=== PATIENT | male | born 1990 | race African-American/Black ===

== ENCOUNTER 2022-02-15 07:51 | Emergency (ER) | payer OTHER ==
[2022-02-15 08:07] VITALS: BP 126/83
--- NOTE | 2022-02-15 08:13 | ED Physician Documentation ---
History of Present Illness - Stated complaint Stated Complaint: SORE THROAT/COUGH - Chief complaint Chief Complaint: General - History obtained from History obtained from: Patient - Additonal information Additional information: Sick since yesterday with runny nose, sore throat and nonproductive cough. No fevers or chills. No myalgias. Not short of breath. Review of Systems Constitutional: denies: Fever, Chills, Myalgias Nose: reports: Rhinorrhea / runny nose, Congestion Throat: reports: Sore throat Respiratory: reports: Cough. denies: Dyspnea PD PAST MEDICAL HISTORY - Allergies Allergies/Adverse Reactions: Allergies Allergy/AdvReac Type Severity Reaction Status Date / Time No Known Drug Allergies Allergy Verified 02/15/22 08:07 PD ED PE NORMAL - Vitals Vital signs reviewed: Yes - General General: Alert and oriented X 3, No acute distress - HEENT HEENT: Ears normal, Pharynx benign - Neck Neck: Supple, no meningeal sign, No bony TTP - Cardiac Cardiac: RRR, No murmur - Respiratory Respiratory: No respiratory distress, Clear bilaterally - Abdomen Abdomen: Non tender - Back Back: No CVA TTP, No spinal TTP - Derm Derm: Normal color, Warm and dry - Neuro Neuro: Alert and oriented X 3, Normal speech Results - Vitals Vitals: Vital Signs - 24 hr 02/15/22 08:05 Temperature 36.7 C Heart Rate 86 Respiratory 16 Rate Blood Pressure 126/83 H O2 Saturation 98 Oxygen O2 Source Room air PD MEDICAL DECISION MAKING - ED course ED course: 31-year-old gentleman with what seems like an uncomplicated viral URI and normal exam. Mostly here because he needs a work note. COVID testing offered and accepted. He declined therapeutics for his symptoms. Departure - Departure Disposition: 01 Home, Self Care Clinical Impression: Viral URI Condition: Good Record reviewed to determine appropriate education?: Yes Instructions: ED Viral Syndrome Comments: You have a Covid test pending. You need to self quarantine until the result is done and negative. Do not leave your house. Do not get near anybody. The results should be done in 48 to 72 hours. We will call with a positive result, the fastest way to get a negative result for confirmation though is to go to the hospital website at [email or web address], click on the my [facility] tab and sign up for the patient portal. If any friends or family get sick and would like to have a Covid test done, but do not have signs or symptoms that would necessitate being hospitalized, there are multiple local options for Covid testing. [facility] keeps an updated list of testing and vaccination options at: [email or web address]. Forms: Activity restrictions
== END 2022-02-15 08:17 | disposition home or self-care (01) ==
LOC: ED 07:51
DX: J06.9 Acute upper respiratory infection, unspecified (principal); Z20.822 Contact with and (suspected) exposure to COVID-19
CPT/HCPCS: 99282; 99283

== ENCOUNTER 2022-03-22 19:02 | Outpatient (CLI) | payer OTHER | END 2022-03-22 19:03 | disposition home or self-care (01) | LOC: SC 19:02 | PROVIDERS: ATTEND Nurse Practitioner Family | DX: G47.33 Obstructive sleep apnea (adult) (pediatric) (principal) | CPT/HCPCS: 95810 ==

== ENCOUNTER 2022-04-04 10:04 | Outpatient (CLI) | payer OTHER ==
[2022-04-04 10:40] VITALS: BP 124/75
--- NOTE | 2022-04-04 10:40 | SLEEP CARE CONSULTATION ---
Information from patient questionnaire entered by Bronwyn Suresh MA. I have reviewed and concur with the information entered by Bronwyn Suresh MA. This document represents the service I personally performed and the decisions made by , Rosalie Jackson ARNP. History of Present Illness Service Date and Time: 04/04/2022 1004 Initial Lindsay Sleepiness Scale score: 16 (03/14/2022) Current Lindsay Sleepiness Scale score: 15 (04/04/2022) Additional HPI information: CECILY MEHTA returns for follow up and results of the recently performed polysomnography. I explained the pathophysiology behind obstructive sleep apnea. We then spent quite a bit of time discussing different treatment options. For mild obstructive sleep apnea, surgery and oral appliance are alternatives to nasal CPAP therapy but in moderate or severe cases, nasal CPAP is the most effective and reliable treatment. Because apnea is primarily in supine position, then positional management therapy could be effective. Methods discussed such as positioning with pillows to prevent supine sleep. I reviewed the impact of weight changes on sleep apnea and strongly recommended losing weight. After some discussion, the patient opted to go with the nasal CPAP therapy. Nasal autoCPAP set at 4-15 cmH20 will be ordered with rationale explained. A manual titration study will be ordered if unable to find optimal pressure with office adjustments. I explained how CPAP machine works and what to expect when using the machine. Using CPAP every night in order to get used to it was emphasized. Patient advised to put CPAP mask on before getting into bed so as not to fall asleep without CPAP. To assist acclimation to CPAP use, it could also be used for a short time during day while reading or watching TV. The patient was instructed to call the CPAP supplier to discuss any mechanical problem that may occur. If the mask given is uncomfortable or is difficult to keep on through the night even with adjustment, contact the CPAP supplier as many will replace with ano ther mask style if notified before 30 days. If snoring or perceives is not getting enough air or too much air from the machine, notify this office. Patient counseled not drink alcohol less than 4 hours before bedtime as it can increase snoring and apnea. Patient was cautioned about risks of drowsy driving until sleepiness symptoms resolve. Patient denies drowsy driving. Sleep Study - Results Type of Sleep Study: Polysomnography (F/U POLY, 03/22/2022, POS,) Prior sleep studies: No Polysomnography/Home Sleep Study results: IMPRESSION: The quality of the study is good. The patient had normal sleep efficiency. The sleep architecture was abnormal for sleep fragmentation and reduced amount of time spent in slow wave sleep (N3). Respiratory monitoring showed mild obstructive sleep apnea-hypopnea (AHI = 9.7) associated with frequent arousals, oxyhemoglobin desaturation and mild hypoxia (tony oxygen saturation of 83%). The respiratory events occurred almost exclusively during supine sleep (supine AHI = 18.2; non-supine = 3.60). Snore was loud in intensity. There was no significant periodic leg movement of sleep. Cardiac rhythm was normal sinus rhythm without significant arrhythmia. No abnormal behavior (parasomnia) observed during the night. Allergies and Home Medications Known drug allergies: No (NKA) Drug allergies reviewed: Yes Home medication list reviewed: Yes (no changes) Allergy and home medication list: Allergies No Known Drug Allergies Allergy (Verified 02/15/22 08:07) Review of Systems Review of systems same as previous: Yes (no changes) Physical Exam Vital signs obtained and entered by: DORA HONEYCUTT Blood Pressure: 124/75 (RIGHT, RESP 16, PULSE 80) Cuff size: wrist Heart Rate: 82 O2 Saturation: 98 (CLOTH MASK) Height: 5 ft 9 in Weight: 220 lb (UNIFORM AND BOOTS) Body Mass Index: 32.5 BMI Classification: Obese Impression and Plan 1. Obstructive Sleep Apnea-Hypopnea Syndrome, mild, with lowest oxygen saturation of 83%. Obviously this is the cause of the patients symptoms of unrefreshed sleep, and excessive daytime sleepiness. Patient would liked to try the CPAP therapy for his SAJI. The patient will be started on nasal autoCPAP therapy with pressure set at 4-15 cmH2O. Compliance guidelines also reviewed. A copy of compliance guidelines will be given for reference at check out. Because the apnea is more severe supine, I instructed to avoid sleeping supine using pillow positioning until able to start CPAP use. * Nasal auto CPAP therapy, pressure at 4-15 cm H2O. * Attempt to lose weight. * Avoid alcohol consumption near bedtime. * Avoid supine sleep until using CPAP. * The patient is again cautioned about driving until sleepiness completely resolves. * Return one month after CPAP obtained. I will assess response to therapy and compliance at that time. Counseling Topics: Weight loss health impact Visit Type: In Office Time Spent with Patient (minutes): 20 Provider Statement: I spent 100% of the Face to Face Visit with the patient with greater than 50% spent counseling the patient and coordination of care.
== END 2022-04-04 10:05 | disposition home or self-care (01) ==
LOC: SC 10:04
PROVIDERS: ATTEND Nurse Practitioner Family
DX: G47.33 Obstructive sleep apnea (adult) (pediatric) (principal); E66.9 Obesity, unspecified; Z68.32 Body mass index [BMI] 32.0-32.9, adult
CPT/HCPCS: 99212; 99213

== ENCOUNTER 2022-06-13 09:38 | Outpatient (CLI) | payer OTHER ==
[2022-06-13 10:18] VITALS: BP 106/78
--- NOTE | 2022-06-13 10:18 | SLEEP CARE CONSULTATION ---
Information from patient questionnaire entered by Syeda Rose. I have reviewed and concur with the information entered by Syeda Rose. This document represents the service I personally performed and the decisions made by me, Rosalie Jackson ARNP. History of Present Illness Service Date and Time: 06/13/2022 0938 Previous diagnosis: Mild, Obstructive Sleep Apnea-Hypopnea Syndrome AHI: 9.7 (in 2021) Reason for follow up: first compliance (SET UP 04/24, RESMED) Equipment type: CPAP (ResMed 04/24) Equipment obtained from: Jose (got initial supplies) Mask style: Full face Mask brand: Resmed (AirFit [id number]) Backup mask available: No (will keep old mask when replaced) Last cushion change: 1 month Prior sleep studies: No Type of Sleep Study: Polysomnography (F/U POLY, 03/22/2022, POS,) HPI additional information: CECILY MEHTA was diagnosed to have mild, AHI 9.7, obstructive sleep apnea- hypopnea syndrome and returned today for CPAP therapy first compliance follow- up. Sleep Study - Results Type of Sleep Study: Polysomnography (F/U POLY, 03/22/2022, POS,) Prior sleep studies: No CPAP Compliance Data - Data Reviewed with Patient Average duration of nightly device use: 1 hour 43 minutes Compliance rate %: 3 (07/02 days used) Current pressure setting (cmH2O): 4-15 (median 6.4, avg 8.5, max 8.8) Average residual AHI: 0.4 Central apnea: 0.1 Obstructive apnea: 0.2 Hypopnea: 0.1 Average large leak: 4.2 Subjective Missed days of use due to: reports: mask issues (taking off while asleep), other (will fall asleep without mask on) Patient concerns: reports: mask discomfort, air blowing in eyes, mask leak noise, other (air woke him up and possibly caused a panic attack). denies: aerophagia, condensation in mask/hose, nasal congestion, dry mouth, nose, throat, epistaxis Observed to snore while using device: No Current pressure setting perceived as: comfortable (at first but will wake up with high pressure and chest hurts) On therapy, patient: reports: more rested overall. denies: drowsiness while driving Initial Jackson Sleepiness Scale score: 16 (03/14/2022) Current Jackson Sleepiness Scale score: 14 (06/13/22) Allergies and Home Medications Drug allergies reviewed: Yes (NKDA) Home medication list reviewed: Yes (no changes) Allergy and home medication list: Allergies No Known Drug Allergies Allergy (Verified 02/15/22 08:07) Review of Systems Review of systems same as previous: Yes (no changes) Physical Exam Vital signs obtained and entered by: JUNIOR AUGUSTE Blood Pressure: 106/78 (right arm ) Cuff size: regular Heart Rate: 83 O2 Saturation: 96 Height: 5 ft 9 in Weight: 231 lb Body Mass Index: 34.1 BMI Classification: Obese Impression and Plan 1. Obstructive Sleep Apnea-Hypopnea Syndrome, mild, with poor treatment compliance and excellent apnea control. On CPAP therapy, the patient has better sleep quality and is more rested overall. Patient states the pressure feels good when he first goes to sleep but it is waking up with like a "burst" of pressure. He feels the pressure is too high and then he will feel some anxiety and chest discomfort. The patients pressure will be changed to autoCPAP 4-7 cmH20 for patient comfort. Patient advised to contact me if pressure change is uncomfortable so that it can be adjusted. Goals for apnea control discussed. Patient's apnea severity and rationale for treatment to reduce apnea, improve sleep quality and reduce cardiovascular and cerebrovascular events was reviewed. Patient states he is leaving for [place] tomorrow. This is a permanent move. I advised him to set up a referral to a sleep provider there as soon as he is able for further help with his CPAP therapy. He voiced understanding and ag reement. 2. Obesity, unspecified. Currently patients BMI is 34.1. Obesity increases the risk of apnea, CPAP pressure requirements and overall health risks especially cardiovascular and diabetes. Thus patient is advised to lose weight. * Change auto CPAP pressure to 4-7 cmH2O * Establish care with sleep provider in new area * Notify me if snoring with mask or feeling that the pressure is too much or too little * Attempt to lose weight * Call this office if any problems using CPAP * Return for follow up in 1-2 months at new location, or sooner if concerns arise Counseling Topics: Spare mask, Weight loss health impact Visit Type: In Office Time Spent with Patient (minutes): 20 Provider Statement: I spent 100% of the Face to Face Visit with the patient with greater than 50% spent counseling the patient and coordination of care.
== END 2022-06-13 09:39 | disposition home or self-care (01) ==
LOC: SC 09:38
PROVIDERS: ATTEND Nurse Practitioner Family
DX: G47.33 Obstructive sleep apnea (adult) (pediatric) (principal); E66.9 Obesity, unspecified; Z68.34 Body mass index [BMI] 34.0-34.9, adult
CPT/HCPCS: 99212; 99213